=== PATIENT | female | born 1960 | race Caucasian/White ===

== ENCOUNTER 2023-02-16 20:39 | Emergency (ER) | payer OTHER, SELFPAY ==
[2023-02-16 20:42] VITALS: BP 180/96; PULSE 79; RESP 20; TEMP 36.8; O2SAT 98
[2023-02-16 20:43] VITALS: BP 205/111; PULSE 75; PULSE 79; RESP 13; RESP 15; O2SAT 96; O2SAT 97
--- NOTE | 2023-02-16 20:57 | ED_ITS ---
HPI - Chest Pain General Chief Complaint: Chest Pain Stated Complaint: CHEST PAIN, RIB PAIN Time Seen by Provider: 02/16/23 20:48 Source: patient Mode of arrival: walk-in Limitations: no limitations History of Present Illness HPI narrative: states she was seen by chiropractor yesterday for neck pain. States he had her turn onto her stomach and pressed on her back and she experienced immediate pain of her right chest wall. States she actually screamed out in pain. She now presents because of the ongoing pain. Within the hour she has also developed substernal chest pain. Her pain increases with deep breath. No associated abdominal pain, or nausea MD complaint: Reports chest pain Related Data Home Medications Medication Instructions Recorded Confirmed calcium carbonate 500 mg calcium 500 mg PO DAILY 02/16/23 02/16/23 (1,250 mg) chewable tablet (Calcium 500) cholecalciferol (vitamin D3) 10 10 mcg PO DAILY 02/16/23 02/16/23 mcg (400 unit) capsule esomeprazole magnesium 40 mg 40 mg PO DAILY 02/16/23 02/16/23 capsule,delayed release (Nexium) metoprolol succinate 50 mg 50 mg PO DAILY 02/16/23 02/16/23 tablet,extended release 24 hr Allergies Allergy/AdvReac Type Severity Reaction Status Date / Time azithromycin Allergy Intermediate Verified 02/16/23 20:46 ketorolac [From Toradol] Allergy Intermediate Verified 02/16/23 20:47 latex Allergy Intermediate Verified 02/16/23 20:46 metoclopramide [From Reglan] Allergy Intermediate Verified 02/16/23 20:46 ondansetron [From Zofran] Allergy Intermediate Verified 02/16/23 20:46 Penicillins Allergy Intermediate Verified 02/16/23 20:46 Review of Systems ROS Status of ROS 10 or more systems reviewed and unremarkable except as noted in history and below Cardiovascular Reports: chest pain [facility] Medical History (Updated 02/17/23 @ 00:50 by Hayden Ramey MD) Exam Constitutional Vital Signs, click to edit/add: Last Vital Signs Temp 98.3 F 02/16/23 20:42 Pulse 75 02/16/23 22:18 Resp 14 02/16/23 22:18 BP 163/96 H 02/16/23 22:18 Pulse Ox 95 02/16/23 22:18 O2 Del Method Room Air 02/16/23 20:42 Common normals: oriented x3 and alert HENMT Common normals: normocephalic and head/scalp atraumatic Eye Common normals: PERRL, EOMs intact bilaterally and conjunctivae normal Chest Other: right chest wall beneath her right breast is tender GI Common normals: Normal to inspection, nondistended, normoactive bowel sounds present, soft to palpation and non-tender Extremity Common normals: normal to inspection and full ROM Neuro Common normals: oriented x3, CN's II-XII intact bilaterally, moves all extremities and no focal motor deficits Psych Appearance: grossly normal Course Vital Signs Vital signs: Vital Signs Temperature 98.3 F 02/16/23 20:42 Pulse Rate 79 02/16/23 20:42 Respiratory Rate 20 02/16/23 20:42 Blood Pressure 180/96 H 02/16/23 20:42 Pulse Oximetry 98 02/16/23 20:42 Oxygen Delivery Method Room Air 02/16/23 20:42 Temperature 98.3 F 02/16/23 20:42 Pulse Rate 75 02/16/23 22:18 Respiratory Rate 14 02/16/23 22:18 Blood Pressure 163/96 H 02/16/23 22:18 Pulse Oximetry 95 02/16/23 22:18 Oxygen Delivery Method Room Air 02/16/23 20:42 MDM - Chest Pain MDM Narrative Medical decision making narrative: patient presents with chest pain that started during treatment by her chiropractor. Pain is pleuritic. Pain reproducible with palpation of her right chest. d-dimer neg. EKG without acute changes . Serial troponin neg. Patient advised of the diagnosis of chest wall pain and discharged to follow up with her doctor Lab Data Labs: Lab Results 02/16/23 02/16/23 Range/Units 00:14 21:02 WBC 10.1 (4.0-11.0) 10^3/uL RBC 4.34 (4.20-5.40) 10^6/uL Hgb 13.5 (12.0-16.0) g/dL Hct 40.6 (36.0-48.0) % MCV 93.5 (81.0-99.0) fL MCH 31.1 (26.7-34.0) pg MCHC 33.3 (29.9-35.2) g/dL RDW 13.5 (11.0-15.0) % Plt Count 300 (150-450) 10^3/uL MPV 9.6 (9.5-13.5) fL Neut % (Auto) 71.7 (43.0-75.0) % Lymph % (Auto) 18.8 L (20.5-60.0) % [place] % (Auto) 6.8 (1.7-12.0) % Eos % (Auto) 1.5 (0.9-7.0) % Baso % (Auto) 0.8 (0.2-2.0) % Neut # (Auto) 7.3 H (1.4-6.5) 10^3/uL Lymph # (Auto) 1.9 (1.2-3.8) 10^3/uL [place] # (Auto) 0.7 (0.3-0.8) 10^3/uL Eos # (Auto) 0.2 (0.0-0.7) 10^3/uL Baso # (Auto) 0.1 (0.0-0.1) 10^3/uL Abs Immat Gran (auto) 0.04 H (0.00-0.03) 10^3/uL Imm/Tot Granulo (auto) 0.4 (0.0-0.5) % D-Dimer 0.52 (<=0.59) mg/L FEU Sodium 140 (136-145) mmol/L Potassium 3.7 (3.5-5.1) mmol/L Chloride 105 (98-107) mmol/L Carbon Dioxide 26.3 (21.0-32.0) mmol/L Anion Gap 12.4 BUN 17.0 (7.0-18.0) mg/dL Creatinine 0.87 (0.55-1.02) mg/dL Est GFR ( Amer) >60 (>=60) Est GFR (Non-Af Amer) >60 (>=60) BUN/Creatinine Ratio 19.5 Glucose 115 H (74-106) mg/dL Calcium 9.3 (8.5-10.1) mg/dL Total Bilirubin 0.4 (0.2-1.0) mg/dL AST 17 (15-37) U/L ALT 38 (14-59) U/L Alkaline Phosphatase 70 (46-116) U/L Troponin I High Sens 12.0 10.8 (4.0-51.3) pg/mL Total Protein 7.9 (6.4-8.2) g/dL Albumin 4.2 (3.4-5.0) g/dL Globulin 3.7 g/dL Albumin/Globulin Ratio 1.1 Lipase 227.0 (73.0-393.0) U/L Discharge Plan Discharge Chief Complaint: Chest Pain Clinical Impression: Chest wall pain Prescriptions / Home Meds: No Action esomeprazole magnesium [Nexium] 40 mg capsule,delayed release(DR/EC) 40 mg PO DAILY metoprolol succinate 50 mg tablet extended release 24 hr 50 mg PO DAILY cholecalciferol (vitamin D3) 10 mcg (400 unit) capsule 10 mcg PO DAILY calcium carbonate [Calcium 500] 500 mg calcium (1,250 mg) tablet,chewable 500 mg PO DAILY Instructions: Chest Wall Pain (ED) Additional Instructions: follow up with your doctor next week. Return if pain increases Stand Alone Forms: Portal Instructions Referrals: Physician,Non-Staff, MD [Primary Care Provider] - 1 week
--- NOTE | 2023-02-16 21:00 | ECG_ITS ---
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
--- NOTE | 2023-02-16 21:09 | PC.NURSE ---
patient states she saw a chiropractor yesterday for neck pain, states he had her lay face down and pushed on her back. states when he did this she felt a pop to her right ribs and screamed out in pain, feels like he may have broken her rib. states pain increases with movement and to take a deep breath, also feels like she is unable to take a deep breath. states then approx 1-2 hours prior to arrival patient was sitting in a chair at home and developed chest pain to center of chest with nausea. denies cardiac history and denies any similar episodes in past. denies radiation of pain.
[2023-02-16 21:15] LABS: Basophils Absolute Auto 0.1 10^3/uL (0.0-0.1); Basophils Percent Auto 0.8 % (0.2-2.0); Eosinophils Absolute Auto 0.2 10^3/uL (0.0-0.7); Eosinophils Percent Auto 1.5 % (0.9-7.0); Hematocrit 40.6 % (36.0-48.0); Hemoglobin 13.5 g/dL (12.0-16.0); Immature Granulocytes Abs Auto 0.04 10^3/uL (0.00-0.03); Immature Granulocytes Pct Auto 0.4 % (0.0-0.5); Lymphocytes Absolute Auto 1.9 10^3/uL (1.2-3.8); Lymphocytes Percent Auto 18.8 % (20.5-60.0); Mean Corpuscular HGB Conc 33.3 g/dL (29.9-35.2); Mean Corpuscular Hemoglobin 31.1 pg (26.7-34.0); Mean Corpuscular Volume 93.5 fL (81.0-99.0); Mean Platelet Volume 9.6 fL (9.5-13.5); Monocytes Absolute Auto 0.7 10^3/uL (0.3-0.8); Monocytes Percent Auto 6.8 % (1.7-12.0); Neutrophils Absolute Auto 7.3 10^3/uL (1.4-6.5); Neutrophils Percent Auto 71.7 % (43.0-75.0); Platelet Count 300 10^3/uL (150-450); Red Blood Count 4.34 10^6/uL (4.20-5.40); Red Cell Distribution Width 13.5 % (11.0-15.0); White Blood Count 10.1 10^3/uL (4.0-11.0)
--- NOTE | 2023-02-16 21:15 | XR_ITS ---
The [address] [address] Patient Name: INA RODRIGUEZ MRN: [id number] date: 1960 Sex: F Assigned Patient Location: ER Current Patient Location: ER Accession/Order Number: [id number] Exam Date: 02/16/2023 21:10 Report Date: 02/16/2023 21:36 At the request of: RADHA GARCIAS Procedure: XR chest 1V EXAMINATION: XR chest 1V HISTORY: Chest pain COMPARISON: Portable chest 02/28/2020 TECHNIQUE: Portable chest FINDINGS: The lung parenchyma is free of consolidation or infiltrate. No pneumothorax or pleural effusion. The cardiac, mediastinal and hilar contours are normal. The visualized osseous structures exhibit no gross abnormality. XR/XR chest 1V IMPRESSION: No acute cardiopulmonary abnormality. Electronically authenticated by: LILA HAND Date: 02/16/2023 21:36
[2023-02-16 21:27] LABS: D Dimer 0.52 mg/L FEU (<=0.59)
[2023-02-16] MEDS: DIPHENHYDRAMINE HCL 50 MG/ML (1ML) VIAL 25 MG IV (21:27)
[2023-02-16] MEDS: MORPHINE SULFATE 4 MG/ML VIAL IV (21:27)
[2023-02-16 21:32] LABS: Alanine Aminotransferase 38 U/L (14-59); Albumin Globulin Ratio 1.1; Albumin Level 4.2 g/dL (3.4-5.0); Alkaline Phosphatase 70 U/L (46-116); Anion Gap 12.4; Aspartate Amino Transferase 17 U/L (15-37); BUN Creatinine Ratio 19.5; Bilirubin Total 0.4 mg/dL (0.2-1.0); Calcium 9.3 mg/dL (8.5-10.1); Carbon Dioxide 26.3 mmol/L (21.0-32.0); Chloride 105 mmol/L (98-107); Estimated GFR (African America >60 (>=60); Estimated GFR (Non-African Ame >60 (>=60); Globulin 3.7 g/dL; Glucose 115 mg/dL (74-106); Potassium 3.7 mmol/L (3.5-5.1); Sodium 140 mmol/L (136-145); Total Protein 7.9 g/dL (6.4-8.2); Troponin I High Sensitivity 10.8 pg/mL (4.0-51.3)
--- NOTE | 2023-02-16 21:50 | CT_ITS ---
The [address] [address] Patient Name: INA RODRIGUEZ MRN: [id number] date: 1960 Sex: F Assigned Patient Location: ER Current Patient Location: Accession/Order Number: [id number] Exam Date: 02/16/2023 22:02 Report Date: 02/16/2023 22:42 At the request of: RADHA GARCIAS Procedure: CT chest wo con EXAMINATION: CT chest wo con REASON FOR EXAM: right rib frac COMPARISON: Chest x-ray 02/16/2023. FINDINGS: Minor atelectasis or scar identified in the costophrenic sulci bilaterally. There is no evidence for a pneumothorax or hemothorax. No pulmonary laceration or contusion is suspected. There is a pulmonary nodule in the superior segment right lower lobe measuring up to 5 mm, and in the left lower lobe measuring up to 3 mm. No central endobronchial obstruction or mass. No acute right-sided rib fracture identified. Subtle deformity of the lateral portion of the right third rib could be related to an old healed fracture. No left-sided rib fracture identified. There is no fracture of the sternum. Visualized thoracic spine also intact. There is no chest wall hematoma or paraspinal hematoma. No adenopathy in the axillary, mediastinal, or hilar regions. No pericardial effusion. The scan into the upper abdomen shows fatty infiltration of the liver. No other acute findings. CT/CT chest wo con IMPRESSION: 1. No right-sided rib fracture. No pneumothorax, pulmonary contusion, pulmonary laceration, or hemothorax. 2. Minor scar atelectasis at lung bases. 3. Incidental pulmonary nodules, the largest of which is 5 mm, in the superior segment right lower lobe. Based on Fleischner criteria,if the patient is low risk, no specific imaging follow-up required. 2017 [employer] GUIDELINES FOR FOLLOWUP AND MANAGEMENT OF PULMONARY NODULES: SOLITARY NODULE Nodule size < 6 mm In a low-risk patient, no routine follow-up. In a high-risk patient, routine follow-up not needed, optional at 12 months. Certain patients at high risk with suspicious nodule morphology, upper lobe location, or both may warrant 12-month follow-up. Nodule size 6-8 mm In a low-risk patient, follow-up CT at 6-12 months; then consider CT at 18-24 months. In a high-risk patient, CT at 6-12 months, then at 18-24 months. Nodule size > 8 mm In a low-risk patient, consider CT at 3 months, PET/CT or tissue sampling. In a high-risk patient, consider CT at 3 months, PET/CT or tissue sampling. Low risk patients include individuals with minimal or absent history of smoking and other known risk factors. High risk patients include individuals with a history of smoking or other known risk factors. MULTIPLE NODULES: Use most suspicious nodule as guide to management. Follow-up intervals may vary according to size and risk. Low risk, less than 6 mm. No routine follow-up High risk, less than 6 mm. Optional 12 month follow-up. Low risk, 6-[address] at 3-6 months, then consider CT at 18-24 months. High risk, 6-[address] at 3-6 months, then at 18-24 months. Low risk, greater than [address] at 3-6 months, then consider CT at 18-24 months. High risk, greater than [address] at 3-6 months, then at 18-24 months. Low risk patients include individuals with minimal or absent history of smoking and other known risk factors. High risk patients include individuals with a history of smoking or other known risk factors. Electronically authenticated by: MYA ARAYA Date: 02/16/2023 22:42
[2023-02-16 22:18] VITALS: BP 163/96; PULSE 75; RESP 14; O2SAT 95
[2023-02-16] MEDS: PROMETHAZINE HCL 25 MG/ML VIAL 12.5 MG IV (23:45)
[2023-02-17 00:55] VITALS: PULSE 84; RESP 16; O2SAT 100
== END 2023-02-17 00:55 | disposition home or self-care (01) ==
PROVIDERS: Emergency Provider Internal Medicine
DX: R07.89 Other chest pain (principal); Z79.899 Other long term (current) drug therapy
CPT/HCPCS: 36415; 71045; 71250; 80053; 83690; 84484; 85025; 85378; 93005; 96374; 96375; 99285

== ENCOUNTER 2023-08-23 12:02 | Emergency (ER) | payer OTHER, SELFPAY ==
[2023-08-23 12:07] VITALS: BP 162/94; PULSE 72; RESP 20; O2SAT 100; BMI 30.8
[2023-08-23 12:20] VITALS: O2SAT 100
--- NOTE | 2023-08-23 12:23 | XR_ITS ---
The [address] [address] Patient Name: INA RODRIGUEZ MRN: [id number] date: 1960 Sex: F Assigned Patient Location: ER Current Patient Location: ED.MAIN Accession/Order Number: [id number] Exam Date: 08/23/2023 12:33 Report Date: 08/23/2023 12:47 At the request of: LUIS BURGESS Procedure: XR chest 1V EXAMINATION: XR chest 1V HISTORY: shortness of breath COMPARISON: 02/16/2023 TECHNIQUE: AP portable erect FINDINGS: LUNGS: No significant pulmonary parenchymal abnormalities. VASCULATURE: No increased pulmonary vasculature. PLEURA: No pneumothorax, effusion, or pleural thickening. CARDIAC: Prominent heart size, stable MEDIASTINUM: No visible mass or adenopathy. BONES: No fracture or visible bone lesion. OTHER: Negative. XR/XR chest 1V IMPRESSION: Clear lungs Electronically authenticated by: LILA COLEY Date: 08/23/2023 12:47
--- NOTE | 2023-08-23 12:23 | ECG_ITS ---
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
--- NOTE | 2023-08-23 12:24 | ED_ITS ---
HPI - General Adult General Chief complaint: Shortness of Breath/Dyspnea Stated complaint: SHORTNESS OF BREATH/ DIZZINESS Time Seen by Provider: 08/23/23 12:12 Source: patient Mode of arrival: walk-in Limitations: no limitations History of Present Illness HPI narrative: Yesterday while walking the patient suddenly experienced sensation of fast heart rate, got light-headed/dizzy and felt shortness of breath. The symptoms only lasted for a few seconds, she told me, and then resolved. However the same symptoms returned this morning and did not go away so she came to the ED for evaluation. PMHx includes SVT but she did not check her HR when she had her episodes. She admits to some mild pressure or tightness across the anterior chest during the episodes. No recent injury or illness. She denied any recent or current URI symptoms. No blurred vision, ringing in the ears, ear pain or fullness. Related Data Home Medications Medication Instructions Recorded Confirmed calcium carbonate 500 mg calcium 500 mg PO DAILY 02/16/23 08/23/23 (1,250 mg) chewable tablet (Calcium 500) cholecalciferol (vitamin D3) 10 10 mcg PO DAILY 02/16/23 08/23/23 mcg (400 unit) capsule esomeprazole magnesium 40 mg 40 mg PO DAILY 02/16/23 08/23/23 capsule,delayed release (Nexium) metoprolol succinate 50 mg 50 mg PO DAILY 02/16/23 08/23/23 tablet,extended release 24 hr ezetimibe 10 mg tablet 10 mg PO DAILY 08/23/23 08/23/23 Allergies Allergy/AdvReac Type Severity Reaction Status Date / Time azithromycin Allergy Intermediate Verified 08/23/23 12:07 ketorolac [From Toradol] Allergy Intermediate Verified 08/23/23 12:07 latex Allergy Intermediate Verified 08/23/23 12:07 metoclopramide [From Reglan] Allergy Intermediate Verified 08/23/23 12:07 ondansetron [From Zofran] Allergy Intermediate Verified 08/23/23 12:07 Penicillins Allergy Intermediate Verified 08/23/23 12:07 prochlorperazine Allergy Hives Verified 08/23/23 12:07 [From Compazine] [facility] Medical History (Updated 08/23/23 @ 13:42 by Ignacio Jones) Parathyroid gland disorder ?E21.5 - Disorder of parathyroid gland, unspecified (ICD-10) Hypertension ?I10 - Essential (primary) hypertension (ICD-10) Armenta esophagus ?K22.70 - Armenta's esophagus without dysplasia (ICD-10) Social History Smoking status: Former smoker Exam Narrative Exam Narrative: Nurses notes and vital signs reviewed and patient is not hypoxic. afebrile General: Well-appearing and in no apparent distress. Skin: Warm, dry, no pallor noted. No rash. Head: Normocephalic, atraumatic. Neck: Supple, non-tender. Eye: Pupils are equal, round and EOMI. No scleral icterus. Ears, Nose, Mouth, and Throat: Oral mucosa is moist Cardiovascular: Regular Rate and Rhythm without murmur, gallop or rub. Respiratory: No accessory muscle use or respiratory distress. Lungs are clear to auscultation, no wheezing, rales or rhonchi Musculoskeletal: normal ROM, no calf or popliteal tenderness, no lower extremity edema/swelling GI: Abdomen is soft, non-distended. Normal bowel sounds. No tenderness to palpation. No rebound, guarding, or rigidity noted. Neurological: A&O x4. No cranial nerve dysfunction observed. No truncal ataxia. Moves all extremities. Sensation intact. Psychiatric: Cooperative and interactive. Normal mood and affect. Constitutional Vital Signs, click to edit/add: Last Vital Signs Pulse 74 08/23/23 13:32 Resp 18 08/23/23 13:32 BP 148/76 H 08/23/23 13:32 Pulse Ox 96 08/23/23 13:32 O2 Del Method Room Air 08/23/23 13:32 Course Vital Signs Vital signs: Vital Signs Pulse Rate 72 08/23/23 12:07 Respiratory Rate 20 08/23/23 12:07 Blood Pressure 162/94 H 08/23/23 12:07 Pulse Oximetry 100 08/23/23 12:07 Oxygen Delivery Method Room Air 08/23/23 12:07 Pulse Rate 74 08/23/23 13:32 Respiratory Rate 18 08/23/23 13:32 Blood Pressure 148/76 H 08/23/23 13:32 Pulse Oximetry 96 08/23/23 13:32 Oxygen Delivery Method Room Air 08/23/23 13:32 Medical Decision Making MDM Narrative Medical decision making narrative: Patient was placed on monitor technician and EKG obtained. Blood drawn and sent for evaluation. Orthostatics were borderline with drop in BP and increase in HR going from laying to standing, during which she had no increase in dizziness or other symptoms. EKG normal. CBC with normal WBC and Hb, left shift is noted. Sodium and chloride elevated at 151 and 110, respectively. Patient informed of lab results, diagnosis and plan for treatment, which will include dramatically lowering her sodium intake and increasing her free water intake. I stressed the importance of out-patient PCP follow up to get her sodium level rechecked and see if her BP has properly improved. Lab Data Lab results reviewed: Yes I reviewed the patient's lab results Labs: Lab Results 08/23/23 Range/Units 12:30 WBC 9.7 (4.0-11.0) 10^3/uL RBC 4.58 (4.20-5.40) 10^6/uL Hgb 14.2 (12.0-16.0) g/dL Hct 42.6 (36.0-48.0) % MCV 93.0 (81.0-99.0) fL MCH 31.0 (26.7-34.0) pg MCHC 33.3 (29.9-35.2) g/dL RDW 13.2 (11.0-15.0) % Plt Count 300 (150-450) 10^3/uL MPV 9.5 (9.5-13.5) fL Neut % (Auto) 76.6 H (43.0-75.0) % Lymph % (Auto) 14.5 L (20.5-60.0) % [place] % (Auto) 6.8 (1.7-12.0) % Eos % (Auto) 0.9 (0.9-7.0) % Baso % (Auto) 0.8 (0.2-2.0) % Neut # (Auto) 7.4 H (1.4-6.5) 10^3/uL Lymph # (Auto) 1.4 (1.2-3.8) 10^3/uL [place] # (Auto) 0.7 (0.3-0.8) 10^3/uL Eos # (Auto) 0.1 (0.0-0.7) 10^3/uL Baso # (Auto) 0.1 (0.0-0.1) 10^3/uL Abs Immat Gran (auto) 0.04 H (0.00-0.03) 10^3/uL Imm/Tot Granulo (auto) 0.4 (0.0-0.5) % D-Dimer 0.37 (<=0.59) mg/L FEU Sodium 151 H (136-145) mmol/L Potassium 4.0 (3.5-5.1) mmol/L Chloride 110 H (98-107) mmol/L Carbon Dioxide 28.0 (21.0-32.0) mmol/L Anion Gap 17.0 BUN 13.0 (7.0-18.0) mg/dL Creatinine 0.80 (0.55-1.02) mg/dL Est GFR ( Amer) >60 (>=60) Est GFR (Non-Af Amer) >60 (>=60) BUN/Creatinine Ratio 16.2 Glucose 143 H (74-106) mg/dL Calcium 9.2 (8.5-10.1) mg/dL Troponin I High Sens 9.3 (4.0-51.3) pg/mL NT-Pro-B Natriuret Pep 353.0 (<=900.0) pg/mL Imaging Data Chest x-ray: Radiologist's impression: ITS Impressions Chest X-Ray 08/23/23 12:23 IMPRESSION: Clear lungs Electronically authenticated by: LILA COLEY Date: 08/23/2023 12:47 ECG Data Attestation: I personally reviewed and interpreted this ECG as follows: Interpretation: EKG interpretation: Emergency Department physician interpretation. Normal sinus rhythm at 71bpm. Normal axis, normal intervals and no ST segment elevation or depression. Normal EKG. Discharge Plan Discharge Chief Complaint: Shortness of Breath/Dyspnea Clinical Impression: Acute hypernatremia Patient Disposition: Home, Self-Care Time of Disposition Decision: 13:41 Prescriptions / Home Meds: No Action esomeprazole magnesium [Nexium] 40 mg capsule,delayed release(DR/EC) 40 mg PO DAILY metoprolol succinate 50 mg tablet extended release 24 hr 50 mg PO DAILY cholecalciferol (vitamin D3) 10 mcg (400 unit) capsule 10 mcg PO DAILY calcium carbonate [Calcium 500] 500 mg calcium (1,250 mg) tablet,chewable 500 mg PO DAILY ezetimibe 10 mg tablet 10 mg PO DAILY Instructions: Hypernatremia (ED) Stand Alone Forms: Portal Instructions Referrals: Physician,Non-Staff, MD [Primary Care Provider] - 1 week
[2023-08-23 12:38] LABS: Basophils Absolute Auto 0.1 10^3/uL (0.0-0.1); Basophils Percent Auto 0.8 % (0.2-2.0); Eosinophils Absolute Auto 0.1 10^3/uL (0.0-0.7); Eosinophils Percent Auto 0.9 % (0.9-7.0); Hematocrit 42.6 % (36.0-48.0); Hemoglobin 14.2 g/dL (12.0-16.0); Immature Granulocytes Abs Auto 0.04 10^3/uL (0.00-0.03); Immature Granulocytes Pct Auto 0.4 % (0.0-0.5); Lymphocytes Absolute Auto 1.4 10^3/uL (1.2-3.8); Lymphocytes Percent Auto 14.5 % (20.5-60.0); Mean Corpuscular HGB Conc 33.3 g/dL (29.9-35.2); Mean Platelet Volume 9.5 fL (9.5-13.5); Monocytes Absolute Auto 0.7 10^3/uL (0.3-0.8); Monocytes Percent Auto 6.8 % (1.7-12.0); Neutrophils Absolute Auto 7.4 10^3/uL (1.4-6.5); Neutrophils Percent Auto 76.6 % (43.0-75.0); Platelet Count 300 10^3/uL (150-450); Red Blood Count 4.58 10^6/uL (4.20-5.40); Red Cell Distribution Width 13.2 % (11.0-15.0); White Blood Count 9.7 10^3/uL (4.0-11.0)
[2023-08-23 12:43] VITALS: BP 163/103; BP 163/99; BP 180/97; PULSE 78; PULSE 84; PULSE 96
[2023-08-23 12:56] LABS: D Dimer 0.37 mg/L FEU (<=0.59)
[2023-08-23 12:58] LABS: BUN Creatinine Ratio 16.2; Calcium 9.2 mg/dL (8.5-10.1); Chloride 110 mmol/L (98-107); Estimated GFR (African America >60 (>=60); Estimated GFR (Non-African Ame >60 (>=60); Glucose 143 mg/dL (74-106); Sodium 151 mmol/L (136-145); Troponin I High Sensitivity 9.3 pg/mL (4.0-51.3)
[2023-08-23 13:32] VITALS: BP 148/76; PULSE 74; RESP 18; O2SAT 96
== END 2023-08-23 13:51 | disposition home or self-care (01) ==
PROVIDERS: Emergency Provider Emergency Medicine
DX: E87.0 Hyperosmolality and hypernatremia (principal); I10 Essential (primary) hypertension; K22.70 Barrett's esophagus without dysplasia; E21.5 Disorder of parathyroid gland, unspecified; Z79.899 Other long term (current) drug therapy; R06.02 Shortness of breath
CPT/HCPCS: 36415; 71045; 80048; 83880; 84484; 85025; 85378; 93005; 99285

== ENCOUNTER 2023-11-30 15:18 | Emergency (ER) | payer OTHER, SELFPAY ==
[2023-11-30 15:23] VITALS: BP 134/89; PULSE 86; TEMP 36.7; O2SAT 97
--- NOTE | 2023-11-30 15:32 | CT_ITS ---
[address] [address] Patient Name: INA RODRIGUEZ MRN: [id number] date: 1960 Sex: F Assigned Patient Location: ER Current Patient Location: ED.MAIN Accession/Order Number: [id number] Exam Date: 11/30/2023 16:07 Report Date: 11/30/2023 16:35 At the request of: VERITO ZARCO Procedure: CT abdomen pelvis wo con CT ABDOMEN/PELVIS WITHOUT IV CONTRAST. INDICATION: flank pain r/o stone COMPARISON: There are no other studies available for comparison. TECHNIQUE: Contiguous axial images were obtained from the lung bases to the pelvic floor without intravenous or oral contrast. Coronal and sagittal reformations are provided. FINDINGS: LOWER LUNGS: Clear. LIVER/BILIARY TREE: No discrete lesion. No intrahepatic ductal dilatation. Hepatic steatosis. GALLBLADDER: Status post cholecystitis. CBD: Normal CBD. SPLEEN: Normal in size. PANCREAS: No appreciable peripancreatic fluid. No pancreatic ductal dilatation. No discrete lesion. ADRENALS: Normal. KIDNEYS: No hydronephrosis. No radiopaque calculus. STOMACH AND BOWEL: Stomach is unremarkable. No dilated bowel loops. No bowel wall thickening. APPENDIX: Not visualized PERITONEAL CAVITY: No fluid. No fat stranding. ABDOMINAL WALL: No subcutaneous stranding. No subcutaneous fluid collection. LYMPH NODES: No mesenteric or retroperitoneal lymphadenopathy by CT criteria. ABDOMINAL AORTA: No aneurysm. PELVIS: No acute abnormality. MUSCULOSKELETAL: No acute osseous abnormality. CT/CT abdomen pelvis wo con IMPRESSION: No acute abnormality in the abdomen or pelvis. No obstructive uropathy. Electronically authenticated by: PEPE NASH Date: 11/30/2023 16:35
--- NOTE | 2023-11-30 15:33 | ED_ITS ---
HPI HPI - General Adult General Chief complaint: Urogenital-Female Stated complaint: kidney/back pain, blood in urine Time Seen by Provider: 11/30/23 15:24 Source: patient Mode of arrival: walk-in Limitations: no limitations History of Present Illness HPI narrative: 63-year-old female presents to the emergency department complaint of left flank pain. Onset 2 days ago insidiously with progressive worsening into today. Now noticing the pain to radiate into the left upper quadrant region. Describes as a dull ache. Has had some nausea. Today, she also noted some hematuria and came in for further evaluation. History of kidney stone 35 years ago. Denies any fever, vomiting, dysuria, frequency. Quality:?as above Severity:?moderate Timing:?as above, constant Context: Normal setting and activity? Modifying factors:?none Associated symptoms: as above Related Data Home Medications ?Medication ?Instructions ?Recorded ?Confirmed calcium carbonate (Calcium 500) 500 mg PO DAILY 02/16/23 08/23/23 cholecalciferol (vitamin D3) 10 10 mcg PO DAILY 02/16/23 08/23/23 mcg (400 unit) capsule esomeprazole magnesium 40 mg 40 mg PO DAILY 02/16/23 08/23/23 capsule,delayed release (Nexium) metoprolol succinate 50 mg 50 mg PO DAILY 02/16/23 08/23/23 tablet,extended release 24 hr ezetimibe 10 mg tablet 10 mg PO DAILY 08/23/23 08/23/23 Allergies Allergy/AdvReac Type Severity Reaction Status Date / Time azithromycin Allergy Intermediate Verified 08/23/23 12:07 ketorolac [From Toradol] Allergy Intermediate Verified 08/23/23 12:07 latex Allergy Intermediate Verified 08/23/23 12:07 metoclopramide [From Reglan] Allergy Intermediate Verified 08/23/23 12:07 ondansetron [From Zofran] Allergy Intermediate Verified 08/23/23 12:07 Penicillins Allergy Intermediate Verified 08/23/23 12:07 prochlorperazine Allergy Hives Verified 08/23/23 12:07 [From Compazine] Opioid HPI Opioid Management Most Recent Opioid Data: Last Pain Scale 6 11/30/23 15:58 Last ED Pain Assessment 11/30/23 15:58 Review of Systems ROS Narrative CONST: Denies any fever, chills HENT: Denies any congestion, sore throat RESP: Denies any cough, shortness of breath CV: Denies any chest pain, peripheral edema GI: +abd pain.? Denies any nausea, vomiting, diarrhea : + left flank pain. + hematuria. Denies any dysuria, frequency MS: Denies any back pain, myalgias SKIN: Denies any color change, rash NEURO: Denies numbness, weakness PSYCHIATRIC: Denies confusion, agitation PFSH PFSH Medical History (Updated 11/30/23 @ 16:55 by NELLY Mckeon) Parathyroid gland disorder ?E21.5 - Disorder of parathyroid gland, unspecified (ICD-10) Hypertension ?I10 - Essential (primary) hypertension (ICD-10) Armenta esophagus ?K22.70 - Armenta's esophagus without dysplasia (ICD-10) Social History Smoking status: Former smoker Exam Narrative Exam Narrative: Vital signs reviewed Nurses notes noted CONST: Nontoxic, well appearing, well nourished, in no distress.? No diaphoresis.?? HENT: normocephalic, atraumatic, moist mucous membrane, no abnormalities of the nose noted, hearing normal EYES: normal appearing conjunctiva, no apparent discharge bilat NECK: normal appearance CV: normal rate, regular rhythm, no murmur RESP: normal effort, speaking in complete sentences. Lung sounds clear and equal bilat.? No wheezes, rales, rhonchi GI: normal bowel sounds, soft, no distension, nontender : no CVA tenderness MS: no edema, tenderness SKIN: no pallor NEURO: A&Ox 3, no focal findings PSYCH: normal mood, affect Constitutional Vital Signs, click to edit/add: Last Vital Signs Temp 98.1 F 11/30/23 15:23 Pulse 87 11/30/23 17:06 Resp 18 11/30/23 17:06 BP 148/90 H 11/30/23 17:06 Pulse Ox 98 11/30/23 17:06 O2 Del Method Room Air 11/30/23 17:06 Course Reevaluation(s) Reevaluation #1: Discussed with patient results, plan, and disposition. She is agreeable with plan Time: 16:54 Vital Signs Vital signs: Vital Signs Temperature 98.1 F 11/30/23 15:23 Pulse Rate 86 11/30/23 15:23 Respiratory Rate 18 11/30/23 15:23 Blood Pressure 134/89 11/30/23 15:23 Pulse Oximetry 97 11/30/23 15:23 Oxygen Delivery Method Room Air 11/30/23 15:23 Temperature 98.1 F 11/30/23 15:23 Pulse Rate 87 11/30/23 17:06 Respiratory Rate 18 11/30/23 17:06 Blood Pressure 148/90 H 11/30/23 17:06 Pulse Oximetry 98 11/30/23 17:06 Oxygen Delivery Method Room Air 11/30/23 17:06 Medical Decision Making MDM Narrative Medical decision making narrative: This is a pleasant 63-year-old female presents to the emergency department complaint of left flank pain. Onset 2 days ago. Now noticing some radiation going into her left upper quadrant. Has had mild nausea. Today, she noted some hematuria. States has had history of kidney stones. On arrival, afebrile, vital signs are stable. On exam, nontoxic, well-appearing patient in no distress. Heart regular rate and rhythm. Lung sounds clear and equal bilaterally. She denies any CVA tenderness. She denies left upper quadrant tenderness. Labs reveal no leukocytosis, anemia, thrombocytopenia, electrolyte imbalance, renal impairment. LFTs, lipase unremarkable. Urinalysis reveals no gross hematuria. No evidence of infection. CT abdomen pelvis imaging, per radiologist reveals no acute findings. Fever nonspecific left flank pain, history of hematuria. Consider passed kidney stone Pyelonephritis, urinary tract infection less likely based on urinalysis, imaging Pancreatitis less likely based on lipase, imaging Consideration made for musculoskeletal pain. Patient declined any medications during ED course. Disposition ? The patient was discharged. Plan: Patient will be discharged to home. Condition at time of disposition: s table She declined any prescriptions Advised to follow up with primary provider. Advised to return for any worsening and/or development of new, concerning signs or symptoms PLEASE NOTE: Portions of the medical record may have been produced using electronic test carrier and may contain errors with respect to translation of words which may not have been identified prior to finalization of the chart. Lab Data Labs: Lab Results 11/30/23 11/30/23 Range/Units 15:25 15:55 WBC 9.3 (4.0-11.0) 10^3/uL RBC 4.32 (4.20-5.40) 10^6/uL Hgb 13.5 (12.0-16.0) g/dL Hct 40.3 (36.0-48.0) % MCV 93.3 (81.0-99.0) fL MCH 31.3 (26.7-34.0) pg MCHC 33.5 (29.9-35.2) g/dL RDW 12.9 (11.0-15.0) % Plt Count 307 (150-450) 10^3/uL MPV 9.8 (9.5-13.5) fL Neut % (Auto) 72.3 (43.0-75.0) % Lymph % (Auto) 17.7 L (20.5-60.0) % [place] % (Auto) 7.8 (1.7-12.0) % Eos % (Auto) 1.1 (0.9-7.0) % Baso % (Auto) 0.9 (0.2-2.0) % Neut # (Auto) 6.7 H (1.4-6.5) 10^3/uL Lymph # (Auto) 1.7 (1.2-3.8) 10^3/uL [place] # (Auto) 0.7 (0.3-0.8) 10^3/uL Eos # (Auto) 0.1 (0.0-0.7) 10^3/uL Baso # (Auto) 0.1 (0.0-0.1) 10^3/uL Abs Immat Gran (auto) 0.02 (0.00-0.03) 10^3/uL Imm/Tot Granulo (auto) 0.2 (0.0-0.5) % Sodium 140 (136-145) mmol/L Potassium 3.9 (3.5-5.1) mmol/L Chloride 101 (98-107) mmol/L Carbon Dioxide 28.3 (21.0-32.0) mmol/L Anion Gap 14.6 BUN 17.0 (7.0-18.0) mg/dL Creatinine 0.77 (0.55-1.02) mg/dL Est GFR ( Amer) >60 (>=60) Est GFR (Non-Af Amer) >60 (>=60) BUN/Creatinine Ratio 22.1 Glucose 108 H (74-106) mg/dL Calcium 9.3 (8.5-10.1) mg/dL Magnesium 1.8 (1.8-2.4) mg/dL Total Bilirubin 0.5 (0.2-1.0) mg/dL AST 26 (15-37) U/L ALT 45 (14-59) U/L Alkaline Phosphatase 74 (46-116) U/L Total Protein 7.7 (6.4-8.2) g/dL Albumin 3.7 (3.4-5.0) g/dL Globulin 4.0 g/dL Albumin/Globulin Ratio 0.9 Lipase 74.0 (16.0-77.0) U/L Urine Color Yellow (YELLOW) Urine Clarity Clear (CLEAR) Urine pH 5.5 (5.0-9.0) Ur Specific [place] 1.025 (1.005-1.025) Urine Protein Negative (NEG/TRACE) mg/dL Urine Glucose (UA) Negative (NEGATIVE) mg/dL Urine Ketones Negative (NEGATIVE) mg/dL Urine Occult Blood Trace-i (NEGATIVE) Urine Nitrite Negative (NEGATIVE) Urine Bilirubin Negative (NEGATIVE) Urine Urobilinogen 0.2 (0.2-1.0) EU/dL Ur Leukocyte Esterase Trace A (NEGATIVE) Urine RBC 0-2 (0-2) #/HPF Urine WBC 0-2 A (NONE SEEN) #/HPF Ur Squamous Epith Cells Few A (NONE/RARE) #/LPF Ur Transition Epith Cell Few A (NONE SEEN) #/LPF Urine Crystals None seen (None Seen) #/HPF Urine Bacteria Trace A (NONE SEEN) #/HPF Urine Casts None seen (NONE SEEN) #/LPF Urine Mucus None seen (NONE SEEN) Discharge Plan Discharge Stand Alone Forms: Portal Instructions Chief Complaint: Urogenital-Female Clinical Impression: Abdominal pain, left upper quadrant, Acute left flank pain Hematuria Qualifiers: Hematuria type: unspecified type Qualified Code(s): R31.9 - Hematuria, unspecified Patient Disposition: Home, Self-Care Time of Disposition Decision: 16:54 Condition: Good Mode of Transportation: Private Vehicle Prescriptions / Home Meds: No Action esomeprazole magnesium [Nexium] 40 mg capsule,delayed release(DR/EC) 40 mg PO DAILY metoprolol succinate 50 mg tablet extended release 24 hr 50 mg PO DAILY cholecalciferol (vitamin D3) 10 mcg (400 unit) capsule 10 mcg PO DAILY calcium carbonate [Calcium 500] 500 mg calcium (1,250 mg) tablet,chewable 500 mg PO DAILY ezetimibe 10 mg tablet 10 mg PO DAILY Print Language: Luxembourgish Instructions: Hematuria (ED), Flank Pain (ED) Referrals: Jostin Dobson MD [Physician] - 1 week Physician,Non-Staff, [Primary Care Provider] - 1 week Discharge Date/Time: 11/30/23 17:06
[2023-11-30 15:49] LABS: Bilirubin Urine NEGATIVE (NEGATIVE); Blood Urine TRACE-I (NEGATIVE); Clarity Urine CLEAR (CLEAR); Color Urine YELLOW (YELLOW); Glucose Urine UA NEGATIVE (NEGATIVE); Ketones Urine NEGATIVE (NEGATIVE); Leukocyte Esterase Urine TRACE (NEGATIVE); Nitrite Urine NEGATIVE (NEGATIVE); Protein Urine NEGATIVE (NEG/TRACE); Specific Gravity Urine 1.025 (1.005-1.025); Urobilinogen Urine 0.2 EU/dL (0.2-1.0); pH Urine 5.5 (5.0-9.0)
[2023-11-30] MEDS: 0.9 % SODIUM CHLORIDE 1,000 ML 999 ML IV (15:55)
[2023-11-30 16:13] LABS: Basophils Absolute Auto 0.1 10^3/uL (0.0-0.1); Basophils Percent Auto 0.9 % (0.2-2.0); Eosinophils Absolute Auto 0.1 10^3/uL (0.0-0.7); Eosinophils Percent Auto 1.1 % (0.9-7.0); Hematocrit 40.3 % (36.0-48.0); Hemoglobin 13.5 g/dL (12.0-16.0); Immature Granulocytes Abs Auto 0.02 10^3/uL (0.00-0.03); Immature Granulocytes Pct Auto 0.2 % (0.0-0.5); Lymphocytes Absolute Auto 1.7 10^3/uL (1.2-3.8); Lymphocytes Percent Auto 17.7 % (20.5-60.0); Mean Corpuscular HGB Conc 33.5 g/dL (29.9-35.2); Mean Corpuscular Hemoglobin 31.3 pg (26.7-34.0); Mean Corpuscular Volume 93.3 fL (81.0-99.0); Mean Platelet Volume 9.8 fL (9.5-13.5); Monocytes Absolute Auto 0.7 10^3/uL (0.3-0.8); Monocytes Percent Auto 7.8 % (1.7-12.0); Neutrophils Absolute Auto 6.7 10^3/uL (1.4-6.5); Neutrophils Percent Auto 72.3 % (43.0-75.0); Platelet Count 307 10^3/uL (150-450); Red Blood Count 4.32 10^6/uL (4.20-5.40); Red Cell Distribution Width 12.9 % (11.0-15.0); White Blood Count 9.3 10^3/uL (4.0-11.0)
[2023-11-30 16:33] LABS: Alanine Aminotransferase 45 U/L (14-59); Albumin Globulin Ratio 0.9; Albumin Level 3.7 g/dL (3.4-5.0); Alkaline Phosphatase 74 U/L (46-116); Anion Gap 14.6; Aspartate Amino Transferase 26 U/L (15-37); BUN Creatinine Ratio 22.1; Bilirubin Total 0.5 mg/dL (0.2-1.0); Calcium 9.3 mg/dL (8.5-10.1); Carbon Dioxide 28.3 mmol/L (21.0-32.0); Chloride 101 mmol/L (98-107); Estimated GFR (African America >60 (>=60); Estimated GFR (Non-African Ame >60 (>=60); Glucose 108 mg/dL (74-106); Magnesium 1.8 mg/dL (1.8-2.4); Potassium 3.9 mmol/L (3.5-5.1); Sodium 140 mmol/L (136-145); Total Protein 7.7 g/dL (6.4-8.2)
[2023-11-30 16:38] LABS: Bacteria Urine TRACE #/HPF (NONE SEEN); Mucus Urine NONE SEEN (NONE SEEN); RBC Urine 0-2 #/HPF (0-2); WBC Urine 0-2 #/HPF (NONE SEEN)
[2023-11-30 16:39] LABS: Crystals Seen? None Seen #/HPF (None Seen); Squamous Epithelial Cell Urine FEW #/LPF (NONE/RARE); Transitional Epi Cells Urine FEW #/LPF (NONE SEEN)
[2023-11-30 16:40] LABS: Cast Seen? NONE SEEN #/LPF (NONE SEEN)
[2023-11-30 17:06] VITALS: BP 148/90; PULSE 87; O2SAT 98
== END 2023-11-30 17:06 | disposition home or self-care (01) ==
PROVIDERS: Physician Assistant; Emergency Provider Emergency Medicine
DX: R10.12 Left upper quadrant pain (principal); R10.9 Unspecified abdominal pain; R31.9 Hematuria, unspecified; Z87.442 Personal history of urinary calculi; Z79.899 Other long term (current) drug therapy; I10 Essential (primary) hypertension; K22.70 Barrett's esophagus without dysplasia; Z87.891 Personal history of nicotine dependence; E21.5 Disorder of parathyroid gland, unspecified
CPT/HCPCS: 36415; 74176; 80053; 81001; 83690; 83735; 85025; 99285

== ENCOUNTER 2024-11-06 16:14 | Emergency (ER) | payer OTHER, SELFPAY ==
[2024-11-06 16:16] VITALS: BP 171/87; PULSE 86; TEMP 36.4; O2SAT 98; BMI 28.3
--- NOTE | 2024-11-06 16:33 | ECG_ITS ---
[facility] Test Date: 2024-11-06 Pat Name: INA RODRIGUEZ Department: Room: - Gender: Female [employer]: : [id number] Requested By: [id number] Order Number: [id number] Reading MD: WINNIE HERRON M.D. Measurements Intervals [place] Rate: 74 P: 54 CT: 134 QRS: 65 QRSD: 90 T: 58 QT: 382 QTc: 409 Interpretive Statements 1100 Sinus rhythm 1102 Sinus arrhythmia 9110 normal ECG Compared to ECG 08/23/2023 12:07:58 No significant changes Electronically Signed On 11-08-2024 15:04:56 EDT by WINNIE HERRON M.D.
[2024-11-06] MEDS: PANTOPRAZOLE SODIUM 40 MG VIAL IV (16:36)
[2024-11-06 17:19] LABS: Basophils Absolute Auto 0.1 10^3/uL (0.0-0.1); Basophils Percent Auto 0.9 % (0.2-2.0); Eosinophils Absolute Auto 0.1 10^3/uL (0.0-0.7); Hematocrit 40.6 % (36.0-48.0); Hemoglobin 13.8 g/dL (12.0-16.0); Immature Granulocytes Abs Auto 0.03 10^3/uL (0.00-0.03); Immature Granulocytes Pct Auto 0.3 % (0.0-0.5); Lymphocytes Absolute Auto 1.8 10^3/uL (1.2-3.8); Lymphocytes Percent Auto 18.3 % (20.5-60.0); Mean Corpuscular Hemoglobin 31.9 pg (26.7-34.0); Mean Corpuscular Volume 93.8 fL (81.0-99.0); Monocytes Absolute Auto 0.7 10^3/uL (0.3-0.8); Monocytes Percent Auto 6.9 % (1.7-12.0); Neutrophils Absolute Auto 7.2 10^3/uL (1.4-6.5); Neutrophils Percent Auto 72.6 % (43.0-75.0); Platelet Count 282 10^3/uL (150-450); Red Blood Count 4.33 10^6/uL (4.20-5.40); Red Cell Distribution Width 13.2 % (11.0-15.0); White Blood Count 9.9 10^3/uL (4.0-11.0)
[2024-11-06 17:32] VITALS: BP 131/82; PULSE 80; O2SAT 97
[2024-11-06 17:34] LABS: INR 0.98; Prothrombin Time 10.4 sec (9.0-11.6)
[2024-11-06 17:36] LABS: Alanine Aminotransferase 32 U/L (14-59); Albumin Level 3.8 g/dL (3.4-5.0); Alkaline Phosphatase 75 U/L (46-116); Anion Gap 11.9; Aspartate Amino Transferase 20 U/L (15-37); Bilirubin Total 0.5 mg/dL (0.2-1.0); Calcium 9.3 mg/dL (8.5-10.1); Carbon Dioxide 29.8 mmol/L (21.0-32.0); Chloride 101 mmol/L (98-107); Estimated GFR (African America >60 (>=60 mL/min/1.73m^2); Estimated GFR (Non-African Ame >60 (>=60 mL/min/1.73m^2); Globulin 3.9 g/dL; Glucose 107 mg/dL (74-106); Potassium 3.7 mmol/L (3.5-5.1); Sodium 139 mmol/L (136-145); Total Protein 7.7 g/dL (6.4-8.2)
--- NOTE | 2024-11-06 18:01 | ED.GENADUL1 ---
HPI HPI - General Adult General Chief complaint: GI Bleed Stated complaint: rectal bleeding, abdominal pain Time Seen by Provider: 11/06/24 16:16 Source: patient Mode of arrival: walk-in History of Present Illness HPI narrative: The patient has history of Armenta's esophagus coming to the ER with epigastric discomfort and pain associated with which she did well black stool for the last 2 days, she also has some nausea, the patient mentioned that when she vomited it was dark-colored not bloody The patient does not have any fever chills or any other concern No history of alcohol abuse or history of drinking alcohol she also denies any history of use of NSAID Related Data Home Medications ?Medication ?Instructions ?Recorded ?Confirmed calcium carbonate (Calcium 500) 500 mg PO DAILY 02/16/23 11/06/24 cholecalciferol (vitamin D3) 10 10 mcg PO DAILY 02/16/23 11/06/24 mcg (400 unit) capsule esomeprazole magnesium 40 mg 40 mg PO DAILY 02/16/23 11/06/24 capsule,delayed release (Nexium) metoprolol succinate 50 mg 50 mg PO DAILY 02/16/23 11/06/24 tablet,extended release 24 hr ezetimibe 10 mg tablet 10 mg PO DAILY 08/23/23 11/06/24 amlodipine 5 mg tablet 5 mg PO DAILY 11/06/24 11/06/24 ofloxacin 0.3 % ear drops 5 drp otic (ear) .day 11/06/24 11/06/24 Previous Rx's ?Medication ?Instructions ?Recorded esomeprazole magnesium 40 mg 40 mg PO BID #14 caps 11/06/24 capsule,delayed release (Nexium) promethazine 25 mg tablet 25 mg PO TID PRN nausea and 11/06/24 vomiting #10 tabs Allergies Allergy/AdvReac Type Severity Reaction Status Date / Time azithromycin Allergy Intermediate Verified 08/23/23 12:07 ketorolac (From Toradol) Allergy Intermediate Verified 08/23/23 12:07 latex Allergy Intermediate Verified 08/23/23 12:07 metoclopramide (From Reglan) Allergy Intermediate Verified 08/23/23 12:07 ondansetron (From Zofran) Allergy Intermediate Verified 08/23/23 12:07 Penicillins Allergy Intermediate Verified 08/23/23 12:07 prochlorperazine (From Allergy Hives Verified 08/23/23 12:07 Compazine) Opioid HPI Opioid Management Most Recent Opioid Data: Last Pain Scale 6 11/30/23 15:58 11/30/23 Review of Systems ROS Status of ROS 10 or more systems reviewed and unremarkable except as noted in history and below [facility] Medical History (Updated 11/06/24 @ 18:03 by Ada Mendiola MD) Parathyroid gland disorder ?E21.5 - Disorder of parathyroid gland, unspecified (ICD-10) Hypertension ?I10 - Essential (primary) hypertension (ICD-10) Armenta esophagus ?K22.70 - Armenta's esophagus without dysplasia (ICD-10) Social History Smoking status: Former smoker Little interest or pleasure in doing things: not at all Feeling down, depressed, or hopeless: not at all Exam Narrative Exam Narrative: Nurses notes and vital signs reviewed and patient is not hypoxic. General: Well-appearing and in no apparent distress. Skin: Warm, dry, no pallor noted. No rash. Head: Normocephalic, atraumatic. Neck: Supple, non-tender. Cardiovascular: Regular Rate and Rhythm without murmur, gallop or rub. Respiratory: No accessory muscle use or respiratory distress. Lungs are clear to auscultation, no wheezing, rales or rhonchi Chest Wall: no tenderness Back: No midline thoracic or lumbar vertebral tenderness. No CVA tenderness Musculoskeletal: normal ROM, no calf or popliteal tenderness, no lower extremity edema/swelling GI: Abdomen is soft, non-distended. Normal bowel sounds. No masses appreciated. Epigastric discomfort noted Constitutional Vital Signs, click to edit/add: Last Vital Signs Temp 97.6 F 11/06/24 16:16 Pulse 80 11/06/24 17:32 Resp 20 11/06/24 17:32 BP 131/82 11/06/24 17:32 Pulse Ox 97 11/06/24 17:32 O2 Del Method Room Air 11/06/24 17:32 Course Vital Signs Vital signs: Vital Signs Temperature 97.6 F 11/06/24 16:16 Pulse Rate 86 11/06/24 16:16 Respiratory Rate 16 11/06/24 16:16 Blood Pressure 171/87 H 11/06/24 16:16 Pulse Oximetry 98 11/06/24 16:16 Oxygen Delivery Method Room Air 11/06/24 16:16 Temperature 97.6 F 11/06/24 16:16 Pulse Rate 80 11/06/24 17:32 Respiratory Rate 20 11/06/24 17:32 Blood Pressure 131/82 11/06/24 17:32 Pulse Oximetry 97 11/06/24 17:32 Oxygen Delivery Method Room Air 11/06/24 17:32 Medical Decision Making MDM Narrative Medical decision making narrative: The patient CBC did not show any drop in the hemoglobin Chemistry was within normal The patient CAT scan of the abdomen pelvis with out contrast showed no acute pathology The patient was treated in the ER with Protonix as well as Phenergan after asking her about her allergy history and apparently she tolerated Phenergan well The patient presentation could be secondary to gastritis or Armenta's esophagus complication The patient instructed about the importance of endoscopy and the fact that she will be referred to gastroenterology for outpatient Her is metoprolol be increased to twice a day for the next 7 days in addition to adding Phenergan with supportive care and liquid diet for the next 3 to 5 days The patient to follow-up with gastroenterology as outpatient to monitor his symptoms in case of continuous bleeding or any increase in bleeding she is to come back to the ER Patient does not take any anticoagulation The patient is to follow up with primary care physician in next 2-3 days or to return to the emergency department should any of the signs or symptoms worsen or new symptoms develop. The patient agrees with the following Diagnosis and Treatment plan and the patient will be discharged home. Lab Data Labs: Lab Results 11/06/24 Range/Units 16:35 WBC 9.9 (4.0-11.0) 10^3/uL RBC 4.33 (4.20-5.40) 10^6/uL Hgb 13.8 (12.0-16.0) g/dL Hct 40.6 (36.0-48.0) % MCV 93.8 (81.0-99.0) fL MCH 31.9 (26.7-34.0) pg MCHC 34.0 (29.9-35.2) g/dL RDW 13.2 (11.0-15.0) % Plt Count 282 (150-450) 10^3/uL MPV 10.0 (9.5-13.5) fL Neut % (Auto) 72.6 (43.0-75.0) % Lymph % (Auto) 18.3 L (20.5-60.0) % [place] % (Auto) 6.9 (1.7-12.0) % Eos % (Auto) 1.0 (0.9-7.0) % Baso % (Auto) 0.9 (0.2-2.0) % Neut # (Auto) 7.2 H (1.4-6.5) 10^3/uL Lymph # (Auto) 1.8 (1.2-3.8) 10^3/uL [place] # (Auto) 0.7 (0.3-0.8) 10^3/uL Eos # (Auto) 0.1 (0.0-0.7) 10^3/uL Baso # (Auto) 0.1 (0.0-0.1) 10^3/uL Abs Immat Gran (auto) 0.03 (0.00-0.03) 10^3/uL Imm/Tot Granulo (auto) 0.3 (0.0-0.5) % PT 10.4 (9.0-11.6) sec INR 0.98 Sodium 139 (136-145) mmol/L Potassium 3.7 (3.5-5.1) mmol/L Chloride 101 (98-107) mmol/L Carbon Dioxide 29.8 (21.0-32.0) mmol/L Anion Gap 11.9 BUN 15.0 (7.0-18.0) mg/dL Creatinine 0.88 (0.55-1.02) mg/dL Est GFR ( Amer) >60 (>=60 mL/min/1.73m^2) Est GFR (Non-Af Amer) >60 (>=60 mL/min/1.73m^2) BUN/Creatinine Ratio 17.0 Glucose 107 H (74-106) mg/dL Calcium 9.3 (8.5-10.1) mg/dL Total Bilirubin 0.5 (0.2-1.0) mg/dL AST 20 (15-37) U/L ALT 32 (14-59) U/L Alkaline Phosphatase 75 (46-116) U/L Total Protein 7.7 (6.4-8.2) g/dL Albumin 3.8 (3.4-5.0) g/dL Globulin 3.9 g/dL Albumin/Globulin Ratio 1.0 Lipase 62.0 (16.0-77.0) U/L Discharge Plan Discharge Chief Complaint: GI Bleed Clinical Impression: Gastritis, Armenta's esophagus Patient Disposition: Home, Self-Care Time of Disposition Decision: 18:00 Condition: Good Prescriptions / Home Meds: New esomeprazole magnesium [Nexium] 40 mg capsule,delayed release(DR/EC) 40 mg PO BID Qty: 14 0RF promethazine 25 mg tablet 25 mg PO TID PRN (Reason: nausea and vomiting) Qty: 10 0RF No Action amlodipine 5 mg tablet 5 mg PO DAILY ofloxacin 0.3 % drops 5 drp OTIC (EAR) .day Patient Comments: right ear, 7 days esomeprazole magnesium [Nexium] 40 mg capsule,delayed release(DR/EC) 40 mg PO DAILY metoprolol succinate 50 mg tablet extended release 24 hr 50 mg PO DAILY cholecalciferol (vitamin D3) 10 mcg (400 unit) capsule 10 mcg PO DAILY calcium carbonate [Calcium 500] 500 mg calcium (1,250 mg) tablet,chewable 500 mg PO DAILY ezetimibe 10 mg tablet 10 mg PO DAILY Print Language: Moldovan Instructions: Gastritis (ED), Diet for Stomach Ulcers and Gastritis (ED) Referrals: BRENDAN RANDOLPH [Physician] - 1 week Physician,Non-Staff, MD [Primary Care Provider] - 1 week
[2024-11-06] MEDS: PROMETHAZINE HCL 12.5 MG in 0.9 % SODIUM CHLORIDE 50 ML 202 MG IV (18:10)
== END 2024-11-06 18:36 | disposition home or self-care (01) ==
PROVIDERS: Emergency Provider Emergency Medicine
DX: K29.70 Gastritis, unspecified, without bleeding (principal); K22.70 Barrett's esophagus without dysplasia; Z87.891 Personal history of nicotine dependence
CPT/HCPCS: 36415; 74176; 80053; 83690; 85025; 85610; 86850; 86900; 86901; 93005; 96365; 96375; 99285; J2550